=== PATIENT | female | born 2000 | race Caucasian/White ===

== ENCOUNTER → 2023-07-06 08:41 | Outpatient (REF) | payer BC, SELFPAY | LOC: HWRAD 08:41 | PROVIDERS: ATTENDING PHYSICIAN Nurse Practitioner Adult Health | DX: R79.89 Other specified abnormal findings of blood chemistry (principal) | CPT/HCPCS: 76700 ==

== ENCOUNTER → 2023-11-30 06:33 | Day surgery (SDC) | payer BC, SELFPAY | LOC: GI 06:33 | PROVIDERS: ATTENDING PHYSICIAN Internal Medicine Gastroenterology | DX: K31.89 Other diseases of stomach and duodenum (principal); R76.8 Other specified abnormal immunological findings in serum | CPT/HCPCS: 43239; 88305; 88342 ==

== ENCOUNTER → 2025-04-21 15:31 | Outpatient (REF) | payer BC, SELFPAY | LOC: RAD 15:31 | PROVIDERS: ATTENDING PHYSICIAN Internal Medicine Gastroenterology; FAMILY PHYSICIAN Nurse Practitioner Adult Health | DX: R10.32 Left lower quadrant pain (principal) | CPT/HCPCS: 74177; Q9967 ==